=== PATIENT | male | born 1990 | race Two or more races ===

== ENCOUNTER 2019-07-06 00:34 | Emergency (ER) | payer SELFPAY ==
[~2019-07-06] VITALS: Ht 177.8 cm; Wt 113.6 kg
[2019-07-06 00:47] VITALS: Ht 177.8 cm; Wt 113.6 kg
[2019-07-06] MEDS ORDERED: KEFLEX500 MG PO (01:20)
[2019-07-06 01:27] VITALS: BP 133/71
== END 2019-07-06 01:27 | disposition home or self-care (01) ==
LOC: D.ER 00:34
DX: L02.512 Cutaneous abscess of left hand (principal)